=== PATIENT | male | born 1995 | race Caucasian/White ===

== ENCOUNTER 2018-04-24 09:14 | Emergency (ER) | payer BC, OTHER ==
[~2018-04-24] VITALS: Ht 190.5 cm; Wt 59.0 kg
[2018-04-24] MEDS ORDERED: cefTRIAXone 1GM/50ML D5W 50 ML IV ONE (10:00)
[2018-04-24] MEDS ORDERED: ALBUTEROL SULF 2.5 MG/0.5ML(0.5%) NEB SOLN NEB ONE (10:00)
[2018-04-24] MEDS ORDERED: IPRATROPIUM BROM 0.5 MG/2.5ML INH SOL NEB ONE (10:00)
[2018-04-24 10:30] VITALS: BP 120/60
[2018-04-24] MEDS ORDERED: SODIUM CHLORIDE 0.9% 1,000 ML IV ONE (10:30)
== END 2018-04-24 11:00 | disposition home or self-care (01) ==
LOC: ER 09:14 → EDBD 09:14 → ER 10:58
DX: J45.901 Unspecified asthma with (acute) exacerbation (principal); J02.9 Acute pharyngitis, unspecified
CPT/HCPCS: 94640; 96365; 99283; J0696; J7030; J7611; J7644